=== PATIENT | female | born 2000 | race Caucasian/White ===

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

== ENCOUNTER 2019-10-26 03:06 | Emergency (ER) | payer MEDICAID ==
[~2019-10-26] VITALS: Ht 162.6 cm; Wt 102.1 kg
[2019-10-26] MEDS ORDERED: KETOROLAC TROMETH 60MG/2ML VIAL IM ONE (04:30)
[2019-10-26 04:42] VITALS: BP 100/54
[2019-10-26] MEDS ORDERED: PENICILLIN G BENZ 1200000 UNITS/2 ML SYRG IM ONE (05:00)
== END 2019-10-26 06:00 | disposition home or self-care (01) ==
LOC: ER 03:06
DX: J02.8 Acute pharyngitis due to other specified organisms (principal); B96.89 Other specified bacterial agents as the cause of diseases classified elsewhere
CPT/HCPCS: 96372; 99284; J0561; J1885